=== PATIENT | female | born 1940 | race Caucasian/White ===

== ENCOUNTER → 2016-10-13 | Outpatient (CLI) | payer MEDICARE, BC ==
[~2016-10-13] MED LIST: ACETAMINOPHEN W1 TA6 PO; AMBIEN CR12.5 MG PO; BENADRYL25 MG PO; BENICAR HCT 12.1 TA1 PO; BENICAR20 MG PO; CENTRUM1 TA1 PO; COMBIVENT INH14.7 GM INH; CRANBERRY1 CAP PO; DEXAMETHASONE2 MG PO; DULERA1 AR1 IH; DULERA1 ARO IH; ELIQUIS5 MG PO; FORADIL AERO0.012 MG IH; FORADIL IH; LASIX 20MG TABL20 MG PO; LASIX20 M1 PO; LEVOFLOXACIN500 M1 PO; LEVOTHROID0.125 MG PO; LEVOTHYROXIN0.025 MG PO; LOTRISONE 0.05%1 CRE TOP; MACROBID 1100 MG/CAP PO; PREDNISONE10 M1 PO; RT SPIRIVA INH18 MCG IH; SOTALOL80 MG PO; SPIRIVA18 MCG IH; SYNTHROID137 MCG PO; THEOPHYLLINE A300 M1 PO; THEOPHYLLINE E200 MG PO; TYLENOL EXTRA500 M1 PO; WARFARIN SOD5 MG PO; ZOVIRAX30 GM TP; [UNRECOGNIZED DRUG - OTHER] PO
== END ==
LOC: LAB 15:21
DX: E11.9 Type 2 diabetes mellitus without complications (principal); D86.0 Sarcoidosis of lung; I48.2 Chronic atrial fibrillation; E78.2 Mixed hyperlipidemia; K90.9 Intestinal malabsorption, unspecified

== ENCOUNTER 2016-11-19 08:10 | Emergency (ER) | payer MEDICARE, BC ==
[~2016-11-19 08:10] MED LIST changes: -LASIX20 M1 PO; -LEVOFLOXACIN500 M1 PO; -RT SPIRIVA INH18 MCG IH; -THEOPHYLLINE A300 M1 PO
[2016-11-19] MEDS ORDERED: RT SPIRIVA INH18 MCG IH (10:11)
[2016-11-19] MEDS ORDERED: THEOPHYLLINE A300 M1 PO (10:11)
[2016-11-19 11:50] VITALS: BP 157/97
[2016-11-20] MEDS ORDERED: LASIX20 M1 PO (15:40)
== END 2016-11-19 11:35 | disposition other institution (70) ==
LOC: ED 08:10
DX: J18.9 Pneumonia, unspecified organism (principal); R09.02 Hypoxemia; J44.9 Chronic obstructive pulmonary disease, unspecified; J45.909 Unspecified asthma, uncomplicated; F17.210 Nicotine dependence, cigarettes, uncomplicated
CPT/HCPCS: A4353

== ENCOUNTER 2016-11-19 11:34 | Inpatient (IN) | payer MEDICARE, BC ==
[~2016-11-19 11:34] MED LIST changes: +RT SPIRIVA INH18 MCG IH; +THEOPHYLLINE A300 M1 PO
[2016-11-19 12:17] VITALS: BP 157/97
[2016-11-19 16:27] VITALS: BP 142/71; BP 163/81
[2016-11-19 18:13] VITALS: BP 140/89
[2016-11-19 19:59] VITALS: BP 140/84
[2016-11-19 22:56] VITALS: BP 149/71
[2016-11-20 02:33] VITALS: BP 141/76
[2016-11-20 06:06] VITALS: BP 153/88
[2016-11-20 11:09] VITALS: BP 128/67
[2016-11-20 15:16] VITALS: BP 127/67
[2016-11-20] MEDS ORDERED: LASIX20 M1 PO (15:40)
[2016-11-20 18:31] VITALS: BP 140/89
[2016-11-20 22:38] VITALS: BP 124/72
[2016-11-21 02:27] VITALS: BP 132/54
[2016-11-21 06:19] VITALS: BP 104/57
[2016-11-21 11:26] VITALS: BP 125/71
[2016-11-21 15:14] VITALS: BP 137/71
[2016-11-21 18:46] VITALS: BP 132/66
[2016-11-21 22:47] VITALS: BP 139/72
[2016-11-22 03:15] VITALS: BP 131/70
[2016-11-22 06:18] VITALS: BP 140/63
[2016-11-22 10:59] VITALS: BP 135/76
[2016-11-22] MEDS ORDERED: LEVOFLOXACIN500 M1 PO (15:27)
[2016-11-22] MEDS ORDERED: MACROBID 1100 MG/CAP PO (15:27)
[2016-11-22 15:58] VITALS: BP 140/69
== END 2016-11-22 17:08 | disposition home or self-care (01) | DRG 190 ==
LOC: MED/SURG 11:34
PROVIDERS: ADMIT Physician Assistant
DX: J44.0 Chronic obstructive pulmonary disease with (acute) lower respiratory infection (principal); J18.9 Pneumonia, unspecified organism; I48.91 Unspecified atrial fibrillation; E11.9 Type 2 diabetes mellitus without complications; Z66 Do not resuscitate; E78.5 Hyperlipidemia, unspecified; D86.0 Sarcoidosis of lung; E03.9 Hypothyroidism, unspecified; R09.02 Hypoxemia; Z87.891 Personal history of nicotine dependence; Z88.0 Allergy status to penicillin; N39.0 Urinary tract infection, site not specified; B96.20 Unspecified Escherichia coli [E. coli] as the cause of diseases classified elsewhere; Z79.02 Long term (current) use of antithrombotics/antiplatelets
CPT/HCPCS: J1956; J2405; J7030

== ENCOUNTER → 2016-12-08 | Outpatient (CLI) | payer MEDICARE, BC ==
[2016-11-22 15:58] VITALS: BP 140/69
[~2016-12-08] MED LIST changes: +LASIX20 M1 PO; +LEVOFLOXACIN500 M1 PO
== END ==
LOC: RAD 10:07
DX: J15.9 Unspecified bacterial pneumonia (principal)

== ENCOUNTER → 2017-01-05 | Day surgery (SDC) | payer MEDICARE, BC | LOC: MSO 14:26 | DX: R11.0 Nausea (principal); R12 Heartburn; K21.9 Gastro-esophageal reflux disease without esophagitis; Z87.891 Personal history of nicotine dependence; I48.91 Unspecified atrial fibrillation; J44.9 Chronic obstructive pulmonary disease, unspecified | CPT/HCPCS: 00740; A4649; J3010; J7030 ==

== ENCOUNTER → 2017-04-14 | Outpatient (CLI) | payer MEDICARE, BC | LOC: RAD 10:40 | DX: I71.4 Abdominal aortic aneurysm, without rupture (principal) ==

== ENCOUNTER → 2017-07-21 | Outpatient (CLI) | payer MEDICARE, BC ==
[2017-07-21 11:44] LABS: HEMATOCRIT 41.3 % (37.0-47.0); HEMOGLOBIN 13.1 g/dL (12.5-16.0); MEAN PLATELET VOLUME 9.2 fl (7.4-10.4); RED BLOOD COUNT 4.39 M/mm3 (4.10-5.30); RED CELL DISTRIBUTION WIDTH 14.8 % (11.5-14.5); WHITE BLOOD COUNT 8.8 K/mm3 (4.8-10.8)
[2017-07-21 11:56] LABS: BUN/CREATININE RATIO 32.1 (6.0-26.0); CALCIUM 9.6 mg/dL (8.4-10.2); POTASSIUM 4.4 mmol/L (3.6-5.0)
== END ==
LOC: LAB 11:22
PROVIDERS: Internal Medicine Interventional Cardiology
DX: I10 Essential (primary) hypertension (principal)

== ENCOUNTER → 2017-10-19 | Outpatient (CLI) | payer MEDICARE, BC | LOC: RAD 12:51 | DX: I71.4 Abdominal aortic aneurysm, without rupture (principal); M79.604 Pain in right leg; M79.605 Pain in left leg; Z90.5 Acquired absence of kidney; Z90.49 Acquired absence of other specified parts of digestive tract; Z90.710 Acquired absence of both cervix and uterus | CPT/HCPCS: Q9967 ==

== ENCOUNTER → 2018-01-25 | Outpatient (CLI) | payer MEDICARE, BC ==
[2018-01-25 12:38] LABS: HEMATOCRIT 44.8 % (37.0-47.0); HEMOGLOBIN 14.3 g/dL (12.5-16.0); MEAN PLATELET VOLUME 8.9 fl (7.4-10.4); RED BLOOD COUNT 4.79 M/mm3 (4.10-5.30); RED CELL DISTRIBUTION WIDTH 15.5 % (11.5-14.5); WHITE BLOOD COUNT 11.2 K/mm3 (4.8-10.8)
[2018-01-25 12:52] LABS: BUN/CREATININE RATIO 28.9 (6.0-26.0); CALCIUM 9.2 mg/dL (8.4-10.2); POTASSIUM 3.6 mmol/L (3.6-5.0)
== END ==
LOC: LAB 12:22
PROVIDERS: Psychiatry & Neurology Psychiatry
DX: I70.211 Atherosclerosis of native arteries of extremities with intermittent claudication, right leg (principal)

== ENCOUNTER → 2018-07-28 | Outpatient (CLI) | payer MEDICARE, BC ==
[2018-07-28 13:20] LABS: URINE APPEARANCE CLEAR; URINE BILIRUBIN NEGATIVE (NEGATIVE); URINE BLOOD NEGATIVE (NEGATIVE); URINE COLOR YELLOW; URINE GLUCOSE NEGATIVE (NEGATIVE); URINE KETONE NEGATIVE (NEGATIVE); URINE LEUKOCYTE ESTERASE NEGATIVE (NEGATIVE); URINE NITRATE NEGATIVE (NEGATIVE); URINE PROTEIN(semi-quant) TRACE mg/dL (NEGATIVE); URINE UROBILINOGEN NORMAL (NORMAL)
== END ==
LOC: LAB 12:20
PROVIDERS: Urology
DX: R30.0 Dysuria (principal)

== ENCOUNTER → 2018-10-24 | Outpatient (CLI) | payer MEDICARE, BC ==
[~2018-10-24] VITALS: Ht 160 cm; Wt 114.1 kg
[~2018-10-24] MED LIST changes: +LOSARTAN POTASS50 M1 PO
[2018-10-24 11:19] LABS: EOS # 0.1 (0.04-0.40); EOS % 1.2 % (1.0-5.0); HEMATOCRIT 46.7 % (37.0-47.0); HEMOGLOBIN 14.8 g/dL (12.5-16.0); LYMPH# 1.1 (1.50-4.00); MEAN CELL VOLUME 95 fl (78-100); MEAN CORPUSCULAR HEMOGLOBIN 30 pg (27-31); MEAN CORPUSCULAR HGB CONC 32 g/dL (33-37); MEAN PLATELET VOLUME 9.1 fl (7.4-10.4); MONO # 0.9 (0.20-0.80); NEU # 6.4 (1.40-6.50); PLATELET COUNT 239 K/mm3 (130-400); RED BLOOD COUNT 4.92 M/mm3 (4.10-5.30); RED CELL DISTRIBUTION WIDTH 15.7 % (11.5-14.5); WHITE BLOOD COUNT 8.5 K/mm3 (4.8-10.8)
[2018-10-24 11:42] LABS: ALBUMIN 3.9 g/dL (3.5-5.0); CALCIUM 9.9 mg/dL (8.4-10.2); POTASSIUM 3.3 mmol/L (3.6-5.0); TOTAL BILIRUBIN 0.7 mg/dL (0.2-1.3); TOTAL PROTEIN 7.4 g/dL (6.3-8.2)
[2018-10-24 13:23] LABS: ERYTHROCYTE SEDIMENTATION RATE 37 mm/hr (0-30)
[2018-10-24 14:26] LABS: PH-URINE 7.5 (5.0 - 8.0); URINE APPEARANCE HAZY; URINE BILIRUBIN NEGATIVE (NEGATIVE); URINE COLOR YELLOW; URINE GLUCOSE NEGATIVE (NEGATIVE); URINE KETONE NEGATIVE (NEGATIVE); URINE PROTEIN(semi-quant) TRACE mg/dL (NEGATIVE)
[2018-10-24 14:27] LABS: URINE BLOOD NEGATIVE (NEGATIVE); URINE LEUKOCYTE ESTERASE 1+ (NEGATIVE); URINE NITRATE POSITIVE (NEGATIVE); URINE UROBILINOGEN NORMAL (NORMAL)
[2018-10-24 14:48] VITALS: BP 112/74
== END ==
LOC: AMSURD 10:30 → RAD 10:30
PROVIDERS: Internal Medicine
DX: Z12.11 Encounter for screening for malignant neoplasm of colon (principal); E11.9 Type 2 diabetes mellitus without complications; J44.1 Chronic obstructive pulmonary disease with (acute) exacerbation; I48.91 Unspecified atrial fibrillation; E03.9 Hypothyroidism, unspecified; E78.2 Mixed hyperlipidemia; D86.0 Sarcoidosis of lung; K90.9 Intestinal malabsorption, unspecified; E87.6 Hypokalemia; E86.0 Dehydration
CPT/HCPCS: J1956; J7120

== ENCOUNTER → 2019-01-04 | Outpatient (CLI) | payer MEDICARE, BC ==
[2018-10-24 14:48] VITALS: BP 112/74
[2019-01-04 11:42] LABS: CALCIUM 10.3 mg/dL (8.3-10.5); POTASSIUM 3.4 mmol/L (3.5-5.1)
== END ==
LOC: LAB 11:00
PROVIDERS: Internal Medicine Interventional Cardiology
DX: E87.6 Hypokalemia (principal)

== ENCOUNTER → 2019-04-10 | Outpatient (CLI) | payer MEDICARE, BC ==
[2018-10-24 14:48] VITALS: BP 112/74
[2019-04-10 09:49] LABS: POTASSIUM 3.6 mmol/L (3.5-5.1)
== END ==
LOC: RAD 08:02
PROVIDERS: Internal Medicine Interventional Cardiology
DX: I71.8 Aortic aneurysm of unspecified site, ruptured (principal); R94.4 Abnormal results of kidney function studies; C64.9 Malignant neoplasm of unspecified kidney, except renal pelvis; I73.9 Peripheral vascular disease, unspecified; Z90.5 Acquired absence of kidney

== ENCOUNTER → 2019-06-12 | Outpatient (CLI) | payer MEDICARE, BC ==
[2018-10-24 14:48] VITALS: BP 112/74
[2019-06-12 12:46] LABS: EOS # 0.2 (0.04-0.40); HEMATOCRIT 44.9 % (37.0-47.0); HEMOGLOBIN 14.2 g/dL (12.5-16.0); LYMPH# 1.4 (1.50-4.00); MEAN CELL VOLUME 94 fl (78-100); MEAN CORPUSCULAR HEMOGLOBIN 30 pg (27-31); MEAN CORPUSCULAR HGB CONC 32 g/dL (33-37); MEAN PLATELET VOLUME 9.7 fl (7.4-10.4); MONO # 0.8 (0.20-0.80); NEU # 7.6 (1.40-6.50); PLATELET COUNT 291 K/mm3 (130-400); RED BLOOD COUNT 4.79 M/mm3 (4.10-5.30); RED CELL DISTRIBUTION WIDTH 14.5 % (11.5-14.5); WHITE BLOOD COUNT 10.1 K/mm3 (4.8-10.8)
[2019-06-12 12:50] LABS: ALBUMIN 3.9 g/dL (3.4-4.8); POTASSIUM 3.2 mmol/L (3.5-5.1)
[2019-06-12 12:51] LABS: CALCIUM 10.9 mg/dL (8.3-10.5)
[2019-06-12 12:52] LABS: TOTAL PROTEIN 7.8 g/dL (6.2-8.1)
[2019-06-12 12:54] LABS: TOTAL BILIRUBIN 0.8 mg/dL (0.2-1.2)
[2019-06-12 13:29] LABS: URINE APPEARANCE CLEAR; URINE BILIRUBIN NEGATIVE (NEGATIVE); URINE BLOOD NEGATIVE (NEGATIVE); URINE COLOR YELLOW; URINE GLUCOSE NEGATIVE (NEGATIVE); URINE KETONE NEGATIVE (NEGATIVE); URINE LEUKOCYTE ESTERASE NEGATIVE (NEGATIVE); URINE NITRATE NEGATIVE (NEGATIVE); URINE PROTEIN(semi-quant) TRACE mg/dL (NEGATIVE); URINE UROBILINOGEN NORMAL (NORMAL)
[2019-06-12 13:48] LABS: ERYTHROCYTE SEDIMENTATION RATE 46 mm/hr (0-30)
[2019-06-12 21:50] LABS: CREATININE OTHER SOURCE 53 mg/dL (())
== END ==
LOC: LAB 12:21
PROVIDERS: Internal Medicine
DX: E11.9 Type 2 diabetes mellitus without complications (principal); I71.4 Abdominal aortic aneurysm, without rupture; M85.80 Other specified disorders of bone density and structure, unspecified site; E78.2 Mixed hyperlipidemia; E03.9 Hypothyroidism, unspecified

== ENCOUNTER → 2019-07-14 | Outpatient (CLI) | payer MEDICARE, BC ==
[2018-10-24 14:48] VITALS: BP 112/74
[2019-07-14 14:29] LABS: POTASSIUM 4.4 mmol/L (3.5-5.1)
[2019-07-14 14:30] LABS: CALCIUM 10.2 mg/dL (8.3-10.5)
== END ==
LOC: LAB 13:34
PROVIDERS: Internal Medicine Nephrology
DX: I12.9 Hypertensive chronic kidney disease with stage 1 through stage 4 chronic kidney disease, or unspecified chronic kidney disease (principal); N18.3 Chronic kidney disease, stage 3 (moderate); D86.9 Sarcoidosis, unspecified

== ENCOUNTER → 2020-03-05 | Outpatient (CLI) | payer MEDICARE, BC ==
[2018-10-24 14:48] VITALS: BP 112/74
== END ==
LOC: RAD 07:52
DX: I71.4 Abdominal aortic aneurysm, without rupture (principal)

== ENCOUNTER → 2020-04-02 | Outpatient (CLI) | payer MEDICARE, BC ==
[2018-10-24 14:48] VITALS: BP 112/74
== END ==
LOC: LAB 08:20
PROVIDERS: Student in an Organized Health Care Education/Training Program
DX: Z01.812 Encounter for preprocedural laboratory examination (principal); E03.9 Hypothyroidism, unspecified; I71.4 Abdominal aortic aneurysm, without rupture

== ENCOUNTER → 2020-04-30 | Outpatient (CLI) | payer MEDICARE, BC ==
[2018-10-24 14:48] VITALS: BP 112/74
== END ==
LOC: RAD 04-23 09:00
DX: I71.4 Abdominal aortic aneurysm, without rupture (principal)
CPT/HCPCS: Q9967

== ENCOUNTER → 2020-07-05 | Outpatient (CLI) | payer MEDICARE, BC ==
[2018-10-24 14:48] VITALS: BP 112/74
== END ==
LOC: LAB 10:17
DX: E03.9 Hypothyroidism, unspecified (principal)

== ENCOUNTER → 2021-08-08 | Outpatient (CLI) | payer MEDICARE, BC ==
[2021-08-08 13:04] LABS: BASO # 0.03 K/mm3 (0.02-0.10); EOS # 0.24 K/mm3 (0.04-0.40); EOS % 2.4 % (1.0-5.0); HEMOGLOBIN 13.8 g/dL (12.5-16.0); LYMPH# 1.49 K/mm3 (1.50-4.00); MEAN CELL VOLUME 94 fl (78-100); MEAN CORPUSCULAR HEMOGLOBIN 30 pg (27-31); MEAN CORPUSCULAR HGB CONC 31 g/dL (33-37); MEAN PLATELET VOLUME 8.7 fl (7.4-10.4); MONO # 0.85 K/mm3 (0.20-0.80); NEU # 7.43 K/mm3 (1.40-6.50); PLATELET COUNT 222 K/mm3 (130-400); RED BLOOD COUNT 4.66 M/mm3 (4.10-5.30); RED CELL DISTRIBUTION WIDTH 15.1 % (11.5-14.5); WHITE BLOOD COUNT 10.1 K/mm3 (4.8-10.8)
[2021-08-08 13:12] LABS: ALBUMIN 3.5 g/dL (3.4-4.8); POTASSIUM 4.6 mmol/L (3.5-5.1)
[2021-08-08 13:13] LABS: CALCIUM 10.9 mg/dL (8.3-10.5)
[2021-08-08 13:15] LABS: TOTAL PROTEIN 7.4 g/dL (6.2-8.1)
[2021-08-08 13:17] LABS: TOTAL BILIRUBIN 0.6 mg/dL (0.2-1.2)
[2021-08-08 13:21] LABS: MAGNESIUM 1.84 mg/dL (1.60-2.60)
[2021-08-08 18:34] LABS: ERYTHROCYTE SEDIMENTATION RATE 52 mm/hr (0-30)
== END ==
LOC: LAB 12:30
PROVIDERS: Internal Medicine
DX: Z12.11 Encounter for screening for malignant neoplasm of colon (principal); E11.9 Type 2 diabetes mellitus without complications; K90.9 Intestinal malabsorption, unspecified; E78.2 Mixed hyperlipidemia; E03.4 Atrophy of thyroid (acquired); N18.30 Chronic kidney disease, stage 3 unspecified; E11.22 Type 2 diabetes mellitus with diabetic chronic kidney disease; M10.9 Gout, unspecified; D86.0 Sarcoidosis of lung

== ENCOUNTER 2022-04-02 11:38 | Emergency (ER) | payer MEDICARE, BC ==
[2022-04-02 12:17] LABS: BASO # 0.04 K/mm3 (0.02-0.10); EOS # 0.26 K/mm3 (0.04-0.40); EOS % 2.9 % (1.0-5.0); HEMATOCRIT 46.3 % (37.0-47.0); HEMOGLOBIN 14.7 g/dL (12.5-16.0); LYMPH# 1.26 K/mm3 (1.50-4.00); MEAN CELL VOLUME 96 fl (78-100); MEAN CORPUSCULAR HEMOGLOBIN 31 pg (27-31); MEAN CORPUSCULAR HGB CONC 32 g/dL (33-37); MEAN PLATELET VOLUME 9.4 fl (7.4-10.4); MONO # 0.76 K/mm3 (0.20-0.80); NEU # 6.62 K/mm3 (1.40-6.50); PLATELET COUNT 196 K/mm3 (130-400); RED BLOOD COUNT 4.82 M/mm3 (4.10-5.30)
[2022-04-02 12:48] LABS: ALBUMIN 3.5 g/dL (3.4-4.8); POTASSIUM 3.2 mmol/L (3.5-5.1)
[2022-04-02 12:49] LABS: CALCIUM 9.9 mg/dL (8.3-10.5)
[2022-04-02 12:52] LABS: TOTAL BILIRUBIN 0.8 mg/dL (0.2-1.2)
[2022-04-02 13:56] LABS: URINE APPEARANCE CLEAR; URINE BILIRUBIN NEGATIVE (NEGATIVE); URINE COLOR YELLOW; URINE GLUCOSE NEGATIVE (NEGATIVE); URINE KETONE NEGATIVE (NEGATIVE); URINE PROTEIN(semi-quant) NEGATIVE (NEGATIVE); URINE UROBILINOGEN NORMAL (NORMAL)
[2022-04-02 13:57] LABS: URINE BLOOD NEGATIVE (NEGATIVE); URINE LEUKOCYTE ESTERASE TRACE (NEGATIVE); URINE NITRATE POSITIVE (NEGATIVE)
[2022-04-02] MEDS ORDERED: CULTURELLE1 EACH PO (14:46)
[2022-04-02] MEDS ORDERED: MACROBID 100 M100 MG PO (14:46)
[2022-04-02 15:17] VITALS: BP 160/75
== END 2022-04-02 15:30 | disposition home or self-care (01) ==
LOC: ED 11:38
PROVIDERS: Physician Assistant
DX: N39.0 Urinary tract infection, site not specified (principal); E87.6 Hypokalemia; M62.830 Muscle spasm of back; Z88.0 Allergy status to penicillin; Z28.310 Unvaccinated for COVID-19
CPT/HCPCS: J2360

== ENCOUNTER → 2022-10-27 | Outpatient (CLI) | payer MEDICARE, BC ==
[~2022-10-27] MED LIST changes: +CULTURELLE1 EACH PO; +MACROBID 100 M100 MG PO
== END ==
LOC: RAD 09:00 → VAS 09:00 → LAB 09:09
DX: I71.40 Abdominal aortic aneurysm, without rupture, unspecified (principal); E03.9 Hypothyroidism, unspecified